=== PATIENT | male | born 1980 | race Caucasian/White ===

== ENCOUNTER 2019-02-18 16:51 | Observation (INO) | payer BC ==
[~2019-02-18] VITALS: Ht 190.5 cm; Wt 130.6 kg
--- NOTE | ~2019-02-18 | CN ---
PATIENT NAME:RAY BOCANEGRA MEDICAL RECORD: [id number] : 78 LOCATION:[address] ADMIT DATE: 02/18/19 ACCOUNT: [id number] CONSULTING PHYSICIAN: ECHO ALONSO MD REFERRING PHYSICIAN: FRANCIS NOLASCO MD DATE OF CONSULTATION: 02/19/2019 ADMITTING DIAGNOSES: 1. Chest pain. 2. Gastroesophageal reflux disease. HISTORY OF PRESENT ILLNESS: Mr. Bocanegra presents with chest pain, it is very atypical from a cardiac standpoint, very typical from a GI standpoint. It is worse with ingestion of any food, worse when he lies flat and he was on [id number] GI directed medication and continues to have the chest pain, he is having into this morning. His EKG is normal. Troponin is normal. PHYSICAL EXAMINATION: CONSTITUTIONAL/GENERAL APPEARANCE: Well nourished, well developed, appears stated age. EYES: Lids and conjunctivae noninjected. No discharge. No pallor. ENT: Lips within normal limit. No cyanosis. No pallor. NECK: Carotid arteries, bilateral normal upstroke. No bruits. No thrills. No jugular venous pressure or distention. CERVICAL LYMPH NODES: Nontender. Nonenlarged. THYROID: Not enlarged. No nodules. CARDIOVASCULAR: Precordial exam, nondisplaced. No heaves or pericardial thrills. Rate and rhythm, regular. Heart sounds, normal S1, normal S2. No S3, no gallop, no rub. Systolic murmur, not heard. Diastolic murmur, not heard. RESPIRATORY: Respiratory effort, unlabored. Normal curvature. No thoracic deformity. No chest wall tenderness. Percussion, resonant. Auscultation, clear. No wheezes, no rales, no rhonchi. ABDOMEN: Soft, nondistended, nontender. No abdominal pain, no vomiting and normal appetite. MUSCULOSKELETAL: No joint tenderness, normal gait, normal tone. SKIN: Warm and dry. OVERALL IMPRESSION: Chest pain, it is compatible with gastroesophageal reflux disease. No other cardiac workup or treatment is necessary at this time. TRANSINT:[id number] Voice Confirmation ID: [id number] DOCUMENT ID: [id number] ECHO ALONSO MD CC: [id number] DICTATION DATE: 02/19/19835 BARKER PEELER: 02/19/19 0846 ADM IN [place] [address] [place] [address]
[2019-02-18] MEDS ORDERED: CODEINE SULFATE30 MG (17:00)
[2019-02-18 17:16] LABS: HEMATOCRIT 43.1 % (42.0-54.0); HEMOGLOBIN 14.6 g/dL (13.5-17.5); LYMPHOCYTES 16.6 % (15-50); MCHC 33.9 g/dL (31.0-37.0); MCV 94.5 fL (80.0-100.0); MEAN PLATELET VOLUME 9.6 fL (7.4-10.4); NEUTROPHILS 73.4 % (40-80); PLATELET COUNT 237 10x3/uL (130-400); RBC 4.56 10x6/uL (4.20-6.10); RDW 12.1 % (11.5-14.5); WBC 9.6 10x3/uL (4.8-10.8)
[2019-02-18 17:27] LABS: CALC OSMOLALITY 268 mosm/kg (275-300); CALCIUM 8.8 mg/dL (8.5-10.1); CARBON DIOXIDE 26.5 mmol/L (21.0-32.0); CHLORIDE - SERUM 100 mmol/L (98-107); CREATININE - SERUM 0.8 mg/dL (0.6-1.3); GLUCOSE 146 mg/dL (74-106); POTASSIUM - SERUM 3.8 mmol/L (3.5-5.1); SODIUM 134 mmol/L (136-145); UREA NITROGEN 7 mg/dL (7-18); eGFR NON AFRICAN AMERICAN > 90 mL/min (90-120)
[2019-02-18 17:43] LABS: ALBUMIN 3.5 g/dL (3.4-5.0); ALKALINE PHOSPHATASE 105 U/L (46-116); ALT (SGPT) 32 U/L (10-68); BILIRUBIN - TOTAL 0.33 mg/dL (0.2-1.3); CKMB 0.5 U/L (0.0-3.6); CREATINE KINASE 67 UL (21-232); PRO BNP 93 pg/mL (0-125); PROTEIN - SERUM 7.9 g/dL (6.4-8.2)
[2019-02-18 17:44] LABS: TROPONIN-I < 0.017 ng/mL (0.000-0.060)
[2019-02-18 18:23] VITALS: BP 117/70
[2019-02-18 18:50] VITALS: BP 108/57
--- NOTE | 2019-02-18 19:04 | NUR ---
BS REPORT TO LEONILA HILTON
--- NOTE | 2019-02-18 19:25 | NUR ---
PT TO FLOOR VIA WHEEL CHAIR, ADMISSION VITALS: BP: 118/70, PULSE: 86, RESP: 22, TEMP: 98.5, O2 SAT 96% RA. WT OF 315LB
[2019-02-18 23:28] LABS: CKMB 0.2 U/L (0.0-3.6); CREATINE KINASE 55 UL (21-232)
[2019-02-18 23:30] VITALS: BP 126/60
[2019-02-18 23:37] LABS: TROPONIN-I < 0.017 ng/mL (0.000-0.060)
[2019-02-19 03:41] LABS: APPEARANCE CLEAR (CLEAR); BILIRUBIN NEGATIVE (NEGATIVE); COLOR YELLOW (YELLOW); GLUCOSE NEGATIVE (NEGATIVE); KETONE NEGATIVE (NEGATIVE); NITRITE NEGATIVE (NEGATIVE); PROTEIN NEGATIVE (NEGATIVE); SPECIFIC GRAVITY 1.015 (1.005-1.020); UROBILINOGEN NORMAL (NORMAL)
[2019-02-19 03:42] LABS: EPITHELIAL CELLS 0-5 /hpf (0-5); RED CELLS - URINE 0-5 /hpf (0-5); WHITE CELLS - URINE 0-5 /hpf (NEGATIVE)
[2019-02-19 03:43] LABS: BACTERIA FEW /hpf (NEGATIVE)
[2019-02-19 04:00] VITALS: BP 136/68
[2019-02-19 06:17] LABS: ALKALINE PHOSPHATASE 88 U/L (46-116); ALT (SGPT) 28 U/L (10-68); AMYLASE - SERUM 28 U/L (25-115); BILIRUBIN - TOTAL 0.23 mg/dL (0.2-1.3); CALC OSMOLALITY 278 mosm/kg (275-300); CALCIUM 8.5 mg/dL (8.5-10.1); CHLORIDE - SERUM 104 mmol/L (98-107); CKMB 0.2 U/L (0.0-3.6); CREATINE KINASE 47 UL (21-232); CREATININE - SERUM 0.9 mg/dL (0.6-1.3); GLUCOSE 114 mg/dL (74-106); LIPASE 128 U/L (73-393); MAGNESIUM - SERUM 2.2 mg/dL (1.8-2.4); PHOSPHOROUS 3.6 mg/dL (2.5-4.9); PROTEIN - SERUM 6.9 g/dL (6.4-8.2); SODIUM 140 mmol/L (136-145); TROPONIN-I < 0.017 ng/mL (0.000-0.060); eGFR NON AFRICAN AMERICAN > 90 mL/min (90-120)
[2019-02-19 06:19] LABS: UREA NITROGEN 10 mg/dL (7-18)
[2019-02-19 06:22] LABS: HEMATOCRIT 40.8 % (42.0-54.0); HEMOGLOBIN 13.8 g/dL (13.5-17.5); LYMPHOCYTES 17.4 % (15-50); MCH 32.2 pg (26.0-34.0); MCHC 33.8 g/dL (31.0-37.0); MCV 95.3 fL (80.0-100.0); MEAN PLATELET VOLUME 10.4 fL (7.4-10.4); NEUTROPHILS 65.1 % (40-80); PLATELET COUNT 209 10x3/uL (130-400); RBC 4.28 10x6/uL (4.20-6.10); RDW 12.5 % (11.5-14.5); WBC 7.8 10x3/uL (4.8-10.8)
--- NOTE | 2019-02-19 07:10 | NUR ---
REPORT RECEIVED FROM SAFETY ATTENDANT AND PATIENT CARE ASSUMED. PATIENT LAYING IN BED ON RT SIDE AWAKE, ALERT AND ORIENTED X 4. PATIENT IS STABLE AND VSS. PATIENT DENIES ANY NEEDS OR PAIN. WILL CONTINUE WITH PLAN OF CARE. SR UP X 2 BED IN LOW POSITION AND CALL LIGHT IN REACH.
[2019-02-19 08:03] VITALS: BP 109/68
[2019-02-19] MEDS ORDERED: PROTONIX40 MG PO (10:38)
[2019-02-19] MEDS ORDERED: CARAFATE1 G PO (10:38)
[2019-02-19 11:20] LABS: UDS - AMPHET NEGATIVE QUAL (NEGATIVE); UDS - BARB NEGATIVE QUAL (NEGATIVE); UDS - BENZO NEGATIVE QUAL (NEGATIVE); UDS - COCAINE NEGATIVE QUAL (NEGATIVE); UDS - OPIATE POSITIVE QUAL (NEGATIVE); UDS - PCP NEGATIVE QUAL (NEGATIVE); UDS - THC NEGATIVE QUAL (NEGATIVE)
[2019-02-19 11:53] LABS: CKMB 0.4 U/L (0.0-3.6); CREATINE KINASE 45 UL (21-232); TROPONIN-I < 0.017 ng/mL (0.000-0.060)
[2019-02-19 12:19] VITALS: BP 125/62
--- NOTE | 2019-02-19 13:02 | NUR ---
ORDERS RECEIVED FOR DC. PATIENT IS NPO AND AWAITING ABD USG SCHEDULED FOR 1600 TODAY. THEN PATIENT CAN DC.
[2019-02-19 14:36] VITALS: Ht 190.5 cm; Wt 130.6 kg
[2019-02-19 16:10] VITALS: BP 120/70
--- NOTE | 2019-02-19 17:45 | NUR ---
PATIENT HAS COMPLETED ABD USG. PATIENT IS STABLE AND VSS. WRITTEN AND VERBAL INSTRUCTIONS GIVEN. PATIENT VERBALIZED UNDERSTANDING AND SIGNED DC INSTRUCTIONS. IV DCD WITHOUT DIFFICULTY WITH ENTIRE CATHETER INTACT. PRESSURE BANDAGE APPLIED . PATIENT TO FRONT DOOR VIA WC ACCOMPANIED BY HOSPITAL PERSONNEL. PATIENT TO PRIVATE VEHICLE DRIVEN BY FRIEND.
--- NOTE | 2019-02-20 09:48 | MORECARE ---
CASE MANAGEMENT DISCHARGE SUMMARY PATIENT: RAY MENDOZA UNIT: [id number] ADM DATE: 02/18/19 AGE: 38 : [birth year] SEX: M ROOM/BED: D.2124 AUTHOR: MAHNAZ AMBROCIO PHYSICIAN: REFERRING PHYSICIAN: FRANCIS NOLASCO MD DATE OF SERVICE: 02/20/19 Discharge Plan Patient Name: RAY MENDOZA [facility] [facility] 1980 Planned Disposition: Home Anticipated Discharge Date: 02/19/19 Discharge Date: 02/19/2019 Expected LOS: 1 Initial Reviewer: [email or web address] Initial Review Date: 02/20/2019 Generated: 02/20/19 10:48 am Patient Name: RAY MENDOZA Page [id number] at 0948 All edits/amendments must be made on the electronic document DICTATION DATE: 02/20/19947 METAL TRIMMER: MAKSIM 02/20/19947 RPT#: [id number] DC DATE:02/19/19 STATUS: DIS IN [facility] [address] [place] [address] END OF REPORT
== END 2019-02-19 18:43 | disposition home or self-care (01) ==
LOC: D.ER 16:51 → D.M2 17:27 → OBSVTIME 17:49 → D.M2 02-19 18:43
PROVIDERS: Family Medicine; ADMIT Internal Medicine Nephrology; ATTEND Internal Medicine Nephrology
DX: R07.9 Chest pain, unspecified (principal); F17.203 Nicotine dependence unspecified, with withdrawal; E87.1 Hypo-osmolality and hyponatremia; I20.9 Angina pectoris, unspecified; R73.9 Hyperglycemia, unspecified; K21.9 Gastro-esophageal reflux disease without esophagitis